=== PATIENT | female | born 1955 | race Caucasian/White ===

== ENCOUNTER 2024-11-16 19:43 | Emergency (ER) | payer SELFPAY ==
--- NOTE | 2024-11-16 19:56 | EDNOTE_ITS ---
ED General RME/HPI General Chief complaint: Wound/Laceration Stated complaint: FACE WOUND Time Seen by Provider: 11/16/24 19:47 Source: patient and EMS Arrival date/time: 11/16/24 19:43 Mode of arrival: EMS Limitations: no limitations RME / HPI RME / HPI narrative: Dr. Landers?s Main ED Evaluation: A 69-year-old female was brought to the emergency department via ambulance due to a mass growing on the right cheek that is now recurrently bleeding. The patient has been observed picking at the wound, which has resulted in a scant amount of bleeding. She denies any pain, discomfort, or other complaints at this time. Patient notes to have mass to the right cheek for several years. DNR/DNI Related Data Allergies Allergy/AdvReac Type Severity Reaction Status Date / Time No Known Allergies Allergy Verified 11/16/24 19:49 Review of Systems Review of Systems Systems Reviewed: All systems reviewed, normal except as documented Past Medical History Past Medical History NEUROLOGIC: Positive Dementia CARDIAC: Negative Congestive Heart Failure RESPIRATORY: Positive Chronic Obstructive Pulmonary Disease (COPD) GENITOURINARY: Negative Renal Disease ENDOCRINE: Negative Diabetes Mellitus Type 1 or Diabetes Mellitus Type 2 Social History SMOKING STATUS: Never smoker ED Exam Narrative Physical exam: GENERAL APPEARANCE: AxOx4, very thin, cachectic HEENT: NC, AT. MMM. 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 No stiffness or restricted ROM. HEART: Normal rate and regular rhythm, normal S1/S1, no m/r/g LUNGS: CTAB, moving air well. No crackles or wheezes are heard. ABDOMEN: Soft, nontender, nondistended with good bowel sounds heard. EXTREMITIES: Without cyanosis, clubbing or edema. NEUROLOGICAL: Grossly nonfocal. Alert and oriented, moving all 4 extremities. CN not formally tested but appear grossly intact. Skin: Warm and dry without any rash General Limitations: Present no limitations Course Quality Measures none Vital Signs Vital signs: Vital Signs Temperature 97.8 F 11/16/24 20:00 Pulse Rate 62 11/16/24 20:00 Respiratory Rate 16 11/16/24 20:00 Blood Pressure 149/85 H 11/16/24 20:00 Pulse Oximetry (%) 94 L 11/16/24 20:00 Oxygen Delivery Method Room Air 11/16/24 20:00 MDM Patient data External records reviewed:: EMS form and None Clinical information provided by:: patient and EMS Social determinants that could affect healthcare access:: none Patient has the following chronic illnesses:: See PMH How is presenting disease/condition affected by chronic disease/condition?: uneffected by Evaluation data The following diagnostics were reviewed and interpreted by me:: other (specify) (n/a) Lab and/or radiology exams considered but not ordered:: none Interpretation Summary: n/a Medications Medications considered but not ordered:: n/a Medication administrations:: n/a Consultations Consultation(s) initiated? (list below): No Diagnosis Differential Diagnosis ED Complaint MDM: Tumor, ulcer, cellulitis, abscess Most likely diagnosis given after review of the tests above:: Tumor Admission Indicated Admission indicated?: not indicated Explain why admission is indicated or not indicated:: As per narrative Admission Request Was there a request for admission?: No Disposition Plan Disposition Plan: other (specify) (Eloped) Medical Decision Making MDM Narrative MDM Narrative: Ms. 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 This is chronic grossly without any acute findings. Per the records she does have an appointment for definitive testing at this point there is no indication to initiate testing here from the emergent/critical care standpoint. Patient states she has some mild pain there, she is not wanting any pain medicines. As this is a chronic issue without acute findings she is appropriate for outpatient follow-up Differential Diagnosis Differential Diagnosis: Tumor, ulcer, cellulitis, abscess Discharge Plan Plan Patient Disposition: HOME (Self Care) Problem List Clinical Impression: Tumor Patient/Caregiver Discharge Instructions Education Materials: ED Tumor, Uncertain Cause Additional Instructions: This is a tumor on the face that could likely be from the saliva gland/parotid gland, or even a type of skin cancer called a basal cell type cancer. The main thing would to be have definitive testing through the specialist. Today there is no emergencies as this is a chronic growing issue. Print Language: Lithuanian Stand Alone Forms: Rebeca Award Info., Patient Portal Info Letter
[2024-11-16 20:00] VITALS: BP 149/85; PULSE 62; RESP 16; TEMP 36.6; O2SAT 94
== END 2024-11-16 21:03 | disposition home or self-care (01) ==
PROVIDERS: Emergency Provider Emergency Medicine
DX: D49.89 Neoplasm of unspecified behavior of other specified sites (principal)
CPT/HCPCS: 99281